=== PATIENT | male | born 1960 | race Caucasian/White ===

== ENCOUNTER 2018-11-03 07:21 | Day surgery (SDC) | payer OTHER ==
[~2018-11-03 07:21] MED LIST: PROPOFOL 200 MG INJ
[2018-11-03] MEDS ORDERED: FENTAnyl 50 MCG/ML VIAL IV (09:00)
[2018-11-03] MEDS ORDERED: ALBUTEROL 0.083% (NEB) 2.5 MG/3 ML AMP HHN (09:00)
[2018-11-03] MEDS ORDERED: ONDANSETRON 4 MG INJ IV (09:00)
[2018-11-03] MEDS ORDERED: OXYCODONE/ACETAMINOPHEN (5/325) TAB PO (09:00)
[2018-11-03] MEDS ORDERED: DIPHENHYDRAMINE 50 MG INJ IV (09:00)
[2018-11-03] MEDS ORDERED: MEPERIDINE 25 MG INJ IV (09:00)
[2018-11-03] MEDS ORDERED: EPHEDrine SULFATE 50 MG/5 ML SYG IV (09:00)
[2018-11-03] MEDS ORDERED: METOCLOPRAMIDE 10 MG INJ IV (09:00)
[2018-11-03] MEDS ORDERED: LABETALOL HCL 20MG INJ IV (09:00)
[2018-11-03] MEDS ORDERED: hydrALAzine 20 MG INJ IV (09:00)
[2018-11-03] MEDS ORDERED: LIDOCAINE 2% (SDV) 5 ML INJ (09:01)
[2018-11-03] MEDS ORDERED: PROPOFOL 60 ML (09:01)
== END 2018-11-03 09:38 | disposition home or self-care (01) ==
LOC: GIL 07:21
DX: K92.1 Melena (principal); K29.30 Chronic superficial gastritis without bleeding; K64.8 Other hemorrhoids; I10 Essential (primary) hypertension
CPT/HCPCS: 43239; 88305; 88312